=== PATIENT | female | born 1985 | race Native Hawaiian/Other Pacific Islander ===

== ENCOUNTER 2019-08-03 14:57 | Outpatient (CLI) | payer OTHER | END 2019-08-03 22:38 | disposition home or self-care (01) | LOC: RAD 14:57 | DX: U07.1 COVID-19 (principal) ==

== ENCOUNTER 2020-05-08 18:17 | Outpatient (CLI) | payer OTHER ==
[2020-05-08 18:30] LABS: PLATELET COUNT 307 K/uL (152-353)
[2020-05-08 18:42] LABS: POTASSIUM 4.2 mmol/L (3.6-5.2)
== END 2020-05-08 21:56 | disposition home or self-care (01) ==
LOC: LABW 18:17
PROVIDERS: ATTEND Surgery
DX: R74.8 Abnormal levels of other serum enzymes (principal); E80.7 Disorder of bilirubin metabolism, unspecified
CPT/HCPCS: 36415; 80053; 85027